=== PATIENT | female | born 1960 ===

== ENCOUNTER 2020-09-27 16:40 | Emergency (ER) | payer BC ==
[2020-09-27] MEDS ORDERED: Sodium Phosphate,Monobasic/Sodium Phosphate,Dibasic Enema 133 ML Bottle RECTAL ONE (17:10)
--- NOTE | 2020-09-27 17:10 | EDM.PDOC ---
ED HPI GENERAL MEDICAL PROBLEM - General Chief Complaint: Abdominal Pain Stated Complaint: ABDOMINAL PAIN Time Seen by Provider: 09/27/20 17:00 Source of Information: Reports: Patient History Limitations: Reports: No Limitations - History of Present Illness INITIAL COMMENTS - FREE TEXT/NARRATIVE: patient presented to the ER with a c/o abdominal pain. started 8-10 days ago, was see at [facility] and was diagnosed with constipation. Started on mag citrate which helped a little bit, but didnt empty all her bowels. no fever or chills. pain mainly after eating. cramping in nature. Had her GB out years ago. no nausea, no diarrhea. No jaundice. Reports that she usually have 1 BM per day, but over the last 10 days she hasn't been going as normal. Abdominal Pain Score (Numeric/FACES): 8 - Related Data Allergies Allergy/AdvReac Type Severity Reaction Status Date / Time No Known Allergies Allergy Verified 09/27/20 16:51 Past Medical History Gastrointestinal History: Reports: Cholelithiasis Social & Family History - Tobacco Use Tobacco Use Status *Q: Current Every Day Tobacco User Years of Tobacco use: 15 Packs/Tins Daily: 1 ED ROS GENERAL - Review of Systems Review Of Systems: See Below Constitutional: Reports: No Symptoms HEENT: Reports: No Symptoms Respiratory: Reports: No Symptoms Cardiovascular: Reports: No Symptoms GI/Abdominal: Reports: Abdominal Pain, Constipation : Reports: No Symptoms Musculoskeletal: Reports: No Symptoms Skin: Reports: No Symptoms Neurological: Reports: No Symptoms ED EXAM, GI/ABD - Physical Exam Exam: See Below Exam Limited By: No Limitations General Appearance: Alert, WD/WN, No Apparent Distress Eyes: Bilateral: EOMI Head: Atraumatic Respiratory/Chest: No Respiratory Distress, Lungs Clear Cardiovascular: Normal Peripheral Pulses, Regular Rate, Rhythm GI/Abdominal Exam: Soft, Non-Tender, No Distention Back Exam: Normal Inspection Extremities: Normal Inspection, Normal Range of Motion Course - Vital Signs Last Recorded V/S: Last Vital Signs Temp 36.2 C 09/27/20 16:54 Pulse 85 09/27/20 16:54 Resp 18 09/27/20 16:54 BP 117/68 09/27/20 16:54 Pulse Ox 96 09/27/20 16:54 - Orders/Labs/Meds Orders: Active Orders 24 hr Category Date Time Status Sodium Chloride 0.9% [Saline Flush] Med 09/27/20 18:37 Ordered 10 ml FLUSH ASDIRECTED PRN Saline Lock Insert [OM.PC] Routine Oth 09/27/20 18:37 Ordered Medication Orders Sodium Chloride (Sodium Chloride 0.9% 10 Ml Syringe) 10 ml FLUSH ASDIRECTED PRN PRN Reason: Keep Vein Open Labs: Laboratory Tests 09/27/20 09/27/20 Range/Units 18:55 18:55 WBC 9.7 (4.0-11.0) K/uL RBC 4.86 (3.80-5.80) M/uL Hgb 14.4 (11.5-16.5) g/dL Hct 43.6 (37.0-47.0) % MCV 90 (76-96) fL MCH 29.6 (27.0-32.0) pg MCHC 33.0 (31.0-35.0) g/dL RDW 13.7 (11.0-16.0) % Plt Count 217 (150-500) K/uL MPV 9.6 (6.0-10.0) fL Sodium 139 (136-145) mmol/L Potassium 4.0 (3.5-5.1) mmol/L Chloride 102 (98-107) mmol/L Carbon Dioxide 27.0 (21.0-32.0) mmol/L Anion Gap 14.0 (5.0-15.0) mmol/L BUN 13 (8-26) mg/dL Creatinine 0.92 (0.55-1.02) mg/dL Est Cr Clr Drug Dosing 64.82 mL/min Estimated GFR (MDRD) > 60 (>60) MLS/MIN BUN/Creatinine Ratio 14.1 (6-25) Glucose 113 H (74-100) mg/dL Calcium 9.4 (8.5-10.1) mg/dL Total Bilirubin 2.0 H (0.0-1.0) mg/dL AST 220 H (15-37) U/L ALT 331 H (12-78) U/L Alkaline Phosphatase 120 H (46-116) U/L Total Protein 8.2 (6.4-8.2) g/dL Albumin 3.8 (3.4-5.0) g/dL Globulin 4.4 H (2.2-4.2) g/dL Albumin/Globulin Ratio 0.9 (0.8-2.0) Lipase 120 (73-393) U/L Meds: Medications Generic Name Dose Route Start Last Admin Trade Name Freq PRN Reason Stop Dose Admin Sodium Chloride 10 ml 09/27/20 18:37 Sodium Chloride 0.9% 10 Ml Syringe FLUSH ASDIRECTED PRN Keep Vein Open Discontinued Medications Generic Name Dose Route Start Last Admin Trade Name Freq PRN Reason Stop Dose Admin Sodium Chloride 1,000 mls @ 999 mls/hr 09/27/20 18:38 09/27/20 18:59 Normal Saline IV 09/27/20 19:38 999 mls/hr .BOLUS ONE Administration Ketorolac Tromethamine 15 mg 09/27/20 18:38 09/27/20 19:02 Ketorolac 60 Mg/2 Ml Sdv IVPUSH 09/27/20 18:39 15 mg ONETIME ONE Administration Ketorolac Tromethamine Confirm 09/27/20 19:08 09/27/20 19:28 Ketorolac 30 Mg/Ml Sdv Administered 09/27/20 19:09 Not Given Dose 30 mg .ROUTE .STK-MED ONE Sodium Biphosphate/Sodium Phosphate 133 ml 09/27/20 17:10 09/27/20 17:15 Sodium Phosphate,Monobasic/Sodium Phosphate,Dibasic Enema 133 Ml Bottle RECTAL 09/27/20 17:11 1 applic ONETIME ONE Administration - Re-Assessments/Exams Free Text/Narrative Re-Assessment/Exam: vitals WNL fleet enema was given - a little result and some improvement in pain 09/27/20 19:46 due to location of pain RUQ - decision was to order labs to rule out biliary stone - [facility] patient had a cholecystectomy in the past - but there is a possibility of small remnant ductal stones. labs showed normal WBC, but elevation in AST/ALT and AlK Phosp - patient reported that she has chronic elevation in LFTs due to Fatty liver disease. pain is down to 1 after a Toradol dose. discussed with the patient that she will eventually need to have an US abdomen done and depends on the results - to see her PCP/fuse cutter for a possible EGD. for now, clear liquid diet, avoid fatty food. will start her on pain meds and PO cipro Departure - Departure Time of Disposition: 19:50 Disposition: Home, Self-Care 01 Condition: Good Clinical Impression: Liver enzyme elevation Abdominal pain Qualifiers: Abdominal location: right upper quadrant Qualified Code(s): R10.11 - Right upper quadrant pain - Discharge Information *PRESCRIPTION DRUG MONITORING PROGRAM REVIEWED*: Not Applicable *COPY OF PRESCRIPTION DRUG MONITORING REPORT IN PATIENT VIJI: Not Applicable Instructions: Abdominal Pain, Adult, [id number] Referrals: PCP,None [Primary Care Provider] - Forms: ED Department Discharge Sepsis Event Note (ED) - Focused Exam Vital Signs: Vital Signs Temp Pulse Resp BP Pulse Ox 09/27/20 16:54 36.2 C 85 18 117/68 96 - Problem List & Annotations (1) Abdominal pain SNOMED Code(s): 75181023 Code(s): R10.9 - UNSPECIFIED ABDOMINAL PAIN Status: Acute Priority: Low Current Visit: Yes Qualifiers: Abdominal location: right upper quadrant Qualified Code(s): R10.11 - Right upper quadrant pain (2) Liver enzyme elevation SNOMED Code(s): 883624990 Code(s): R74.8 - ABNORMAL LEVELS OF OTHER SERUM ENZYMES Status: Acute Priority: Low Current Visit: Yes - Problem List Review Problem List Initiated/Reviewed/Updated: Yes - My Orders Last 24 Hours: My Active Orders 09/27/20 18:37 Sodium Chloride 0.9% [Saline Flush] 10 ml FLUSH ASDIRECTED PRN Saline Lock Insert [OM.PC] Routine - Assessment/Plan Last 24 Hours: My Active Orders 09/27/20 18:37 Sodium Chloride 0.9% [Saline Flush] 10 ml FLUSH ASDIRECTED PRN Saline Lock Insert [OM.PC] Routine Plan: - follow up with your PCP in 2-4 days for repeat labs and for Ultra sounds liver. - clear liquids and soft diet. avoid any fatty/oily and greasy food. - take pain meds and antibiotics as prescribed - return to the ER if fever, jaundice or worsening of abdominal pain
[2020-09-27] MEDS ORDERED: Sodium Chloride 0.9% 10 ML Syringe FLUSH PRN (18:37)
[2020-09-27] MEDS ORDERED: Sodium Chloride 0.9% 1,000 ML IV ONE (18:38)
[2020-09-27] MEDS ORDERED: Ketorolac 60 MG/2 ML SDV IVPUSH ONE (18:38)
[2020-09-27] MEDS ORDERED: Ketorolac 30 MG/ML SDV ONE (19:08)
[2020-09-27] MEDS ORDERED: Ciprofloxacin 500 MG Tab ONE (20:00)
[2020-09-27] MEDS ORDERED: Naproxen 500 MG Tab ONE (20:00)
== END 2020-09-27 20:20 | disposition home or self-care (01) ==
LOC: LB.ED 16:40
DX: R10.11 Right upper quadrant pain (principal); R74.8 Abnormal levels of other serum enzymes; Z72.0 Tobacco use
CPT/HCPCS: 36415; 80053; 83690; 85027; 96374; 99284; A9270; J1885; J7030